=== PATIENT | female | born 1995 | race Caucasian/White ===

== ENCOUNTER 2016-04-08 16:39 | Observation (INO) ==
[2016-04-08 17:38] LABS: Bilirubin,Urine Small (Negative); Blood,Urine Negative (Negative); Clarity,Urine Cloudy (Clear); Color,Urine Dark Yellow (Yellow); Glucose,Urine (UA) Normal (Normal); Ketones,Urine 15 mg/dL (Negative); Leukocyte Esterase,Urine Negative (Negative); Nitrite,Urine Negative (Negative); PH,Urine 6.5 pH Units (5.0-8.0); Protein,Urine Trace mg/dL (Neg-Trace); Specific Gravity,Urine 1.028 (1.010-1.025)
[2016-04-08 17:51] LABS: Bacteria,Urine Few per hpf (None-Few); Squamous Epithelial Cell,Urine Few per lpf (None-Few); WBC,Urine 0-3 per hpf (0-3)
[2016-04-08 17:53] LABS: Mucus,Urine Many (Few)
--- NOTE | 2016-04-11 17:21 | OB/GYN Progress Note ---
Date of Encounter: 04/08/16 Time of Encounter: 17:00 - Assessment and Plan (1) False labor Status: Acute Discharge home with precautions. (2) 25 weeks gestation of Status: Acute Subjective - Subjective Interval history: Pt presented at 25 weeks gestation for labor eval. She was evaluated by nurses. Antepartum ROS: movement normal, no loss of fluid, no vaginal bleeding Objective - Exam FHR: auscultation normal - Labs Labs: Abnormal lab results Urine Clarity Cloudy (Clear) A 04/08/16 17:05 Ur Specific [place] 1.028 (1.010-1.025) H 04/08/16 17:05 Urine Ketones 15 mg/dL (Negative) H 04/08/16 17:05 Urine Bilirubin Small (Negative) H 04/08/16 17:05 Urine Urobilinogen 2.0 mg/dL (Normal) H 04/08/16 17:05 Urine Mucus Many (Few) H 04/08/16 17:05
== END 2016-04-08 18:09 | disposition home or self-care (01) ==
LOC: 1NENULAB
PROVIDERS: ADMIT Obstetrics & Gynecology; ATTEND Obstetrics & Gynecology